=== PATIENT | male | born 1945 | race Caucasian/White ===

== ENCOUNTER 2020-09-12 11:40 | Inpatient (IN) ==
[~2020-09-12 11:40] MED LIST: *HR* Heparin 5,000 UNIT/ML VIAL IVP PRN
[2020-09-12] MEDS ORDERED: Tdap (Boostrix) Vaccine 0.5 ML SYRINGE IM ONE (13:35)
[2020-09-12] MEDS ORDERED: Naloxone 0.4 MG/ML INJ IVP PRN ×4 (13:39→23:39)
[2020-09-12] MEDS ORDERED: Acetaminophen 325 MG TABLET PO PRN (13:43)
[2020-09-12] MEDS ORDERED: Ondansetron ODT 4 MG TAB.RAPDIS SL PRN ×2 (13:43→23:39)
[2020-09-12] MEDS ORDERED: 0.9 % Sodium Chloride 1,000 ML IVC SCH ×2 (13:45→23:39)
[2020-09-12] MEDS ORDERED: *HR* Acetaminophen w/Cod 300-30 mg 1 TAB TABLET PO PRN (14:23)
[2020-09-12] MEDS ORDERED: *HR* OxyCODONE Immed Rel 5 MG TABLET PO PRN ×4 (14:24→23:39)
[2020-09-12 14:35] LABS: Basophils % 0.3 %; Eosinophils # 0.1 K/mcL (0.0-0.6); Eosinophils % 0.5 %; Hematocrit 40.3 % (37.5-50.1); Hemoglobin 13.1 g/dL (12.9-16.9); Immature Granulocytes % 0.7 % (0-4); Lymphocytes # 0.6 K/mcL (0.6-4.6); Lymphocytes % 5.3 %; Mean Corpuscular HGB Conc 32.5 g/dL (31.6-35.5); Mean Corpuscular Hemoglobin 30.3 pg (28.0-33.3); Mean Corpuscular Volume 93.1 fL (83.0-100.0); Mean Platelet Volume 10.4 fL (9.4-12.4); Monocytes # 0.6 K/mcL (0.0-1.3); Monocytes % 5.3 %; Neutrophils # 9.1 K/mcL (1.6-8.9); Platelet Count 127 K/mcL (140-400); Red Blood Count 4.33 M/mcL (4.19-5.50); Red Cell Distribution Width 14.3 % (11.5-14.5); Segmented Neutrophils % 87.9 %; White Blood Count 10.4 K/mcL (4.3-11.1)
[2020-09-12 14:45] LABS: INR 1.4; Prothrombin Time 16.2 Seconds (9.4-12.1)
[2020-09-12 14:57] LABS: BUN/Creatinine Ratio 21 (6-26); Blood Urea Nitrogen 25 mg/dL (8-23); Carbon Dioxide 27 mEq/L (23-29); Chloride 105 mEq/L (98-107); Creatine Kinase 103 Units/L (30-223); Glucose 103 mg/dL (70-105); Osmolality,Calculated 299 (280-300); Potassium 4.2 mEq/L (3.5-5.1); Sodium 142 mEq/L (136-145); eGFR For African Americans > 60 (> 60); eGFR For Non-African Americans > 60 (> 60)
[2020-09-12] MEDS ORDERED: tiZANidine 4 MG TABLET PO PRN (16:28)
[2020-09-12] MEDS ORDERED: carvediloL 6.25 MG TABLET PO SCH (17:00)
[2020-09-12] MEDS ORDERED: *HR* Propofol 200 MG/20 ML VIAL IVP ONE (19:13)
[2020-09-12] MEDS ORDERED: *HR* FentaNYL (PF) 100 MCG/2 ML VIAL ONE (19:14)
[2020-09-12] MEDS ORDERED: Ondansetron 4 MG/2 ML VIAL ONE (19:16)
[2020-09-12] MEDS ORDERED: Lidocaine -MPF 2% 2 ML VIAL ONE (19:16)
[2020-09-12] MEDS ORDERED: Lidocaine HCL 4 ML Topical Solution (Laryng-O-Jet Kit Sterile Pak) TP ONE (19:16)
[2020-09-12] MEDS ORDERED: Clindamycin 900 MG/50 ML 900 MG/50 ML IV.SOLN IVPB ONE (19:47)
[2020-09-12] MEDS ORDERED: EPHEDrine 50 MG/ML VIAL ONE (20:06)
[2020-09-12] MEDS ORDERED: Sugammadex Sodium 200 MG/2 ML VIAL IV ONE (20:14)
[2020-09-12] MEDS ORDERED: Acetaminophen IV 1,000 MG/100 ML BAG IVPB ONE (20:28)
[2020-09-12] MEDS ORDERED: *HR* HYDROmorphone (PF) 1 MG/ML SYRINGE IVP PRN ×2 (20:53→23:39)
[2020-09-12] MEDS ORDERED: *HR* HYDROmorphone 2 MG TABLET PO PRN ×2 (20:53→23:39)
[2020-09-12] MEDS ORDERED: *HR* Labetalol 20 MG/4 ML SYRINGE IVP PRN ×2 (20:53→23:39)
[2020-09-12] MEDS ORDERED: Melatonin 3 MG TABLET PO SCH (21:00)
[2020-09-12] MEDS ORDERED: *HR* HYDROMORPHONE 2 MG/ML VIAL ONE (21:04)
[2020-09-12] MEDS ORDERED: Heparin 25,000UNIT/250ML 1/2NS 25,000 UNIT/250 ML IV.SOLN IVC SCH (22:00)
[2020-09-12] MEDS ORDERED: *HR* Heparin 5,000 UNIT/ML VIAL IVP PRN ×2 (22:00)
[2020-09-13] MEDS ORDERED: Clindamycin 900 MG/50 ML 900 MG/50 ML IV.SOLN IVPB SCH ×2
[2020-09-13] MEDS ORDERED: Acetaminophen IV 1,000 MG/100 ML BAG IVPB SCH
[2020-09-13] MEDS: Acetaminophen IV 1,000 MG/100 ML BAG IVPB SCH ×2 (01:06→06:16)
[2020-09-13] MEDS: Clindamycin 900 MG/50 ML 900 MG/50 ML IV.SOLN IVPB SCH ×2 (03:49→13:03)
[2020-09-13] MEDS ORDERED: *HR* Heparin 5,000 UNIT/ML VIAL IVP PRN ×2 (06:00)
[2020-09-13] MEDS ORDERED: Heparin 25,000UNIT/250ML 1/2NS 25,000 UNIT/250 ML IV.SOLN IVC SCH (06:00)
[2020-09-13 08:44] LABS: Hematocrit 31.9 % (37.5-50.1); Mean Corpuscular HGB Conc 32.6 g/dL (31.6-35.5); Mean Corpuscular Hemoglobin 30.3 pg (28.0-33.3); Mean Platelet Volume 10.7 fL (9.4-12.4); Platelet Count 118 K/mcL (140-400); Red Blood Count 3.43 M/mcL (4.19-5.50); Red Cell Distribution Width 14.4 % (11.5-14.5); White Blood Count 8.4 K/mcL (4.3-11.1)
[2020-09-13 08:49] LABS: Hemoglobin 10.4 g/dL (12.9-16.9)
[2020-09-13] MEDS: Aspirin 81 MG TAB.CHEW PO SCH (08:51)
[2020-09-13] MEDS: carvediloL 6.25 MG TABLET PO SCH ×2 (08:51→17:30)
[2020-09-13] MEDS: Folic Acid 1 MG TABLET PO SCH (08:52)
[2020-09-13] MEDS: Apixaban 2.5 MG TABLET PO SCH ×2 (08:52→21:19)
[2020-09-13] MEDS: Loratadine 10 MG TABLET PO SCH (08:56)
[2020-09-13 09:00] LABS: BUN/Creatinine Ratio 21 (6-26); Blood Urea Nitrogen 23 mg/dL (8-23); Calcium 8.3 mg/dL (8.6-10.3); Carbon Dioxide 24 mEq/L (23-29); Chloride 105 mEq/L (98-107); Glucose 138 mg/dL (70-105); Osmolality,Calculated 284 (280-300); Potassium 4.2 mEq/L (3.5-5.1); Sodium 134 mEq/L (136-145); eGFR For African Americans > 60 (> 60); eGFR For Non-African Americans > 60 (> 60)
[2020-09-13] MEDS ORDERED: Loratadine 10 MG TABLET PO SCH (09:00)
[2020-09-13] MEDS ORDERED: Finasteride 5 MG TABLET PO SCH (09:00)
[2020-09-13] MEDS ORDERED: Folic Acid 1 MG TABLET PO SCH (09:00)
[2020-09-13] MEDS ORDERED: Aspirin 81 MG TAB.CHEW PO SCH (09:00)
[2020-09-13] MEDS ORDERED: Tadalafil [Tadalafil] 5 MG Tablet PO SCH (09:00)
[2020-09-13] MEDS: Finasteride 5 MG TABLET PO SCH (09:31)
[2020-09-13] MEDS: Tadalafil [Tadalafil] 5 MG Tablet PO SCH (09:32)
[2020-09-13] MEDS ORDERED: Acetaminophen 325 MG TABLET PO PRN (14:37)
[2020-09-13] MEDS: tiZANidine 4 MG TABLET PO PRN (15:11)
[2020-09-13] MEDS ORDERED: Melatonin 3 MG TABLET PO SCH (21:00)
[2020-09-14] MEDS: tiZANidine 4 MG TABLET PO PRN (02:58)
[2020-09-14 07:31] LABS: Hematocrit 29.4 % (37.5-50.1); Hemoglobin 9.5 g/dL (12.9-16.9); Mean Corpuscular HGB Conc 32.3 g/dL (31.6-35.5); Mean Corpuscular Hemoglobin 30.3 pg (28.0-33.3); Mean Corpuscular Volume 93.6 fL (83.0-100.0); Mean Platelet Volume 10.8 fL (9.4-12.4); Platelet Count 100 K/mcL (140-400); Red Blood Count 3.14 M/mcL (4.19-5.50); Red Cell Distribution Width 14.4 % (11.5-14.5); White Blood Count 5.9 K/mcL (4.3-11.1)
[2020-09-14 07:52] LABS: BUN/Creatinine Ratio 18 (6-26); Blood Urea Nitrogen 21 mg/dL (8-23); Calcium 8.2 mg/dL (8.6-10.3); Carbon Dioxide 24 mEq/L (23-29); Chloride 107 mEq/L (98-107); Glucose 101 mg/dL (70-105); Osmolality,Calculated 287 (280-300); Potassium 4.1 mEq/L (3.5-5.1); Sodium 137 mEq/L (136-145); eGFR For African Americans > 60 (> 60); eGFR For Non-African Americans > 60 (> 60)
[2020-09-14] MEDS: Apixaban 2.5 MG TABLET PO SCH (08:06)
[2020-09-14] MEDS: Folic Acid 1 MG TABLET PO SCH (08:06)
[2020-09-14] MEDS: Aspirin 81 MG TAB.CHEW PO SCH (08:07)
[2020-09-14] MEDS: carvediloL 6.25 MG TABLET PO SCH (08:07)
[2020-09-14] MEDS: Finasteride 5 MG TABLET PO SCH (08:07)
[2020-09-14] MEDS: Loratadine 10 MG TABLET PO SCH (08:07)
[2020-09-14] MEDS: Tadalafil [Tadalafil] 5 MG Tablet PO SCH (08:10)
[2020-09-14] MEDS ORDERED: polyethylene glycoL 3350 17 GM POWD.PACK PO PRN (08:20)
[2020-09-14 08:56] LABS: Hematocrit 31.7 % (37.5-50.1); Hemoglobin 10.2 g/dL (12.9-16.9)
[2020-09-14 10:31] VITALS: BP 133/68
== END 2020-09-14 12:06 | disposition home or self-care (01) | DRG 481 ==
LOC: EMEROOARM 11:40 → 3NENU 11:40 → SUATTDRO 15:00
PROVIDERS: ADMIT Internal Medicine; ATTEND Family Medicine